=== PATIENT | male | born 1985 | race Caucasian/White ===

== ENCOUNTER 2016-07-02 14:11 | Emergency (ER) | payer OTHER ==
[~2016-07-02] VITALS: Ht 193 cm; Wt 70.5 kg
[2016-07-02 14:16] VITALS: BP 130/79; PULSE 59; RESP 18; TEMP 98.7; O2SAT 100
[2016-07-02 14:22] VITALS: BP 130/79; PULSE 68; RESP 18; TEMP 98.7; O2SAT 100
[2016-07-02 14:26] VITALS: BP 130/79; PULSE 78; RESP 18; O2SAT 100
[2016-07-02] MEDS ORDERED: TETANUS/DIPHTHERIA TOXOID ADULT 0.5 ML VIAL IM ONE (14:30)
[2016-07-02] MEDS ORDERED: BUPIVACAINE HCL PF 0.5% 10 ML VIAL INFIL ONE (14:30)
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
[2016-07-02] MEDS ORDERED: ONDANSETRON HCL 4 MG/2 ML VIAL IV ONE (14:45)
[2016-07-02] MEDS ORDERED: ONDANSETRON HCL 4 MG/2 ML VIAL IV PUSH ONE (14:45)
[2016-07-02] MEDS ORDERED: HYDROmorphone HCL PF 1 MG/ML VIAL IVS ONE (14:45)
[2016-07-02] MEDS ORDERED: POVIDONE IODINE 10% OINT 30 GM TUBE TOPICAL ONE (15:15)
--- NOTE | 2016-07-02 16:21 | RADRPT ---
EXAM DATE/TIME: 07/02/2016 16:00 [facility] COMPARISON: No previous studies available for comparison. INDICATIONS : Head trauma, left ear and head lacerations. RADIATION DOSE: 39.49 CTDIvol (mGy) MEDICAL HISTORY : None SURGICAL HISTORY : None. ENCOUNTER: Initial ACUITY: 1 day PAIN SCALE: 4/10 LOCATION: Left cranial TECHNIQUE: Multiple contiguous axial images were obtained of the head. Using automated exposure control and adj ustment of the mA and/or kV according to patient size, radiation dose was kept as low as reasonably a chievable to obtain optimal diagnostic quality images. FINDINGS: CEREBRUM: The ventricles are normal for age. No evidence of midline shift, mass lesion, hemorrhage or acute in farction. No extra-axial fluid collections are seen. POSTERIOR FOSSA: The cerebellum and brainstem are intact. The 4th ventricle is midline. The cerebellopontine angle i s unremarkable. EXTRACRANIAL: The visualized portion of the orbits is intact. SKULL: The calvaria is intact. No evidence of skull fracture. The exam does demonstrate some gas within the deep subcutaneous tissues along the left temporal scalp. CONCLUSION: 1. No acute intracranial abnormality identified. 2. Soft tissue laceration involving the left ear and left scalp Carlos Ford MD on July 02, 2016 at 16:18 Board Certified Radiologist. This report was verified electronically.
--- NOTE | 2016-07-02 16:34 | RADRPT ---
EXAM DATE/TIME: 07/02/2016 16:00 [facility] COMPARISON: No previous studies available for comparison. INDICATIONS : Head trauma, left ear and head lacerations. RADIATION DOSE: 55.56 CTDIvol (mGy) MEDICAL HISTORY : None SURGICAL HISTORY : None. ENCOUNTER: Initial ACUITY: 1 day PAIN SCORE: 4/10 LOCATION: Left facial TECHNIQUE: Volumetric scanning of the facial bones was performed. Using automated exposure control and adjustme nt of the mA and/or kV according to patient size, radiation dose was kept as low as reasonably achiev able to obtain optimal diagnostic quality images. FINDINGS: CT scan of the facial bones was performed in the axial plane with coronal reconstructions. Soft tissu e windows demonstrate no abnormality insertion of gas in the soft tissues characteristic of laceratio n over the left temporal region. The paranasal sinuses are clear with the exception of minimal mucosal disease involving the anterior ethmoids the and right frontal sinus. A josseline bullosa is present on the right. There is benign-appe aring mucosal disease in the right maxillary sinus.No fracture is identified. The zygomatic arches ar e intact. The nasal bones are unremarkable. Coronal reconstructions demonstrate the orbital floors and rims to be intact. The nasal septum is in the midline. The pterygoid plates are also intact. The body of the mandible, mandibular neck and carla ibular heads are also unremarkable. CONCLUSION: 1. There is no evidence of acute fracture. Chester Grant MD on July 02, 2016 at 16:26 Board Certified Radiologist. This report was verified electronically.
[2016-07-02] MEDS ORDERED: PERC5TAB12 PO (17:24)
[2016-07-02] MEDS ORDERED: CEPH-460 PO (17:29)
[2016-07-02] MEDS ORDERED: IBUP800T23 PO (17:29)
[2016-07-02 17:43] VITALS: BP 127/84
== END 2016-07-02 17:57 | disposition home or self-care (01) ==
LOC: NEPA 14:11
DX: S01.312A Laceration without foreign body of left ear, initial encounter (principal); S01.311A Laceration without foreign body of right ear, initial encounter; S01.01XA Laceration without foreign body of scalp, initial encounter; W22.8XXA Striking against or struck by other objects, initial encounter; Y92.812 Truck as the place of occurrence of the external cause; Z23 Encounter for immunization
CPT/HCPCS: 12001; 12013; 70450; 70486; 90471; 90714; 96374; 96375; 99284; J0690; J1170; J2405